=== PATIENT | male | born 1955 | race African-American/Black ===

== ENCOUNTER 2018-02-20 18:31 | Inpatient (IN) | payer MEDICARE ==
[~2018-02-20] VITALS: Ht 170.2 cm; Wt 65.3 kg
[~2018-02-20 18:31] MED LIST: HEPARIN SODIUM,PORCINE 1,000 UNITS/ML VIAL IVP ONE
[2018-02-20] MEDS ORDERED: AMLO-512 PO (18:52)
[2018-02-20] MEDS ORDERED: PHOSLOC PO (18:52)
[2018-02-20] MEDS ORDERED: CloNIDine HCL 0.2 MG TABLET PO ONE (19:00)
[2018-02-20 19:31] LABS: BASOPHILS % (AUTO) 1.1 % (0.0-2.0); EOSINOPHILS % (AUTO) 4.3 % (1.0-6.0); HEMATOCRIT 26.4 % (41-53); HEMOGLOBIN 8.5 g/dL (13.5-17.5); LYMPHOCYTES # (AUTO) 1.2 K/uL (1.0-4.8); LYMPHOCYTES % (AUTO) 14.2 % (22.0-44.0); MEAN CORPUSCULAR HGB CONC 32.2 G/dL (31.0-37.0); MEAN CORPUSCULAR VOLUME 84 fL (80-100); MONOCYTES # (AUTO) 0.7 K/uL (0.1-1.0); NEUTROPHILS % (AUTO) 72.4 % (40.0-70.0); PLATELET COUNT (AUTO) 287 K/uL (150-450); RED BLOOD CELL COUNT(AUTO) 3.15 MIL/uL (4.50-5.90); RED CELL DISTRIBUTION WIDTH 18.2 % (11.5-14.5)
[2018-02-20 19:46] LABS: PROTHROMBIN TIME 10.9 SEC (9.4-11.6)
[2018-02-20 19:51] LABS: ALANINE AMINOTRANSFERASE 43 U/L (12-78); ALBUMIN 3.1 g/dL (3.4-5.0); ALKALINE PHOSPHATASE 143 U/L (46-116); ANION GAP 15 mmol/L (8-16); ASPARTATE AMINOTRANSFERASE 38 U/L (15-37); BILIRUBIN,TOTAL 0.4 mg/dL (0.1-1.0); CALCIUM, TOTAL 7.8 mg/dL (8.8-10.5); CARBON DIOXIDE 19 mmol/L (22-29); CHLORIDE 105 mmol/L (98-107); CREATINE KINASE, TOTAL ONLY 103 U/L (39-308); CREATININE 7.12 mg/dL (0.60-1.30); GLOMERULAR FILTR. RATE CALC 9 mL/min (>60); GLUCOSE,RANDOM 85 mg/dL (70-110); SODIUM SERUM 139 mmol/L (136-145); TOTAL PROTEIN, SERUM 8.1 g/dL (6.4-8.2); UREA NITROGEN, BLOOD 83 mg/dL (7-18)
[2018-02-20 19:58] LABS: POTASSIUM 7.1 mmol/L (3.5-5.1)
[2018-02-20] MEDS ORDERED: ALBUTEROL SULFATE 5 MG/ML 20 ML NEB SOLN [BULK] NEB ONE (20:00)
[2018-02-20] MEDS ORDERED: SODIUM POLYSTYRENE SULFONATE 15 GM/60 ML SUSPENSION BOTTLE PO ONE (20:00)
[2018-02-20] MEDS ORDERED: FUROSEMIDE 40 MG/4 ML VIAL IVP ONE (20:00)
[2018-02-20 20:26] LABS: B-TYPE NATRIURETIC PEPTIDE 1010 pg/mL (0-100); CREATINE KINASE MB 3.1 ng/mL (0-5)
[2018-02-20] MEDS ORDERED: CALCIUM GLUCONATE 100 MG/ML 10 ML IVP ONE (20:45)
[2018-02-20] MEDS ORDERED: 0.9% SODIUM CHLORIDE 10 ML SYRINGE IVP PRN (20:45)
[2018-02-20] MEDS ORDERED: ONDANSETRON HCL 4 MG/2 ML VIAL IVP PRN (20:45)
[2018-02-20] MEDS ORDERED: ACETAMINOPHEN 325 MG TABLET PO PRN ×2 (20:45→21:00)
[2018-02-20] MEDS: DOCUSATE SODIUM 100 MG CAPSULE PO SCH (21:00)
[2018-02-20] MEDS: HEPARIN SODIUM,PORCINE 5,000 UNITS/ML VIAL SQ SCH (21:00)
[2018-02-20] MEDS ORDERED: OxyCODONE HCL/ACETAMINOPHEN 5-325 MG TABLET PO PRN (21:00)
[2018-02-20] MEDS ORDERED: CloNIDine HCL 0.1 MG TABLET PO PRN (21:00)
[2018-02-20] MEDS ORDERED: BISACODYL 10 MG RECTAL RECTAL SUPPOSITORY PR PRN (21:00)
[2018-02-20] MEDS ORDERED: ALBUTEROL SULFATE 2.5 MG/0.5 ML NEB SOLUTION NEB PRN (21:00)
[2018-02-20 21:54] VITALS: BP 180/101
[2018-02-20] MEDS ORDERED: HEPARIN SODIUM,PORCINE 1,000 UNITS/ML VIAL IVP ONE ×2 (22:15)
[2018-02-20] MEDS ORDERED: MANNITOL 25%-12.5 GM/50 ML VIAL IVP PRN (22:15)
[2018-02-20] MEDS ORDERED: CeFAZolin 1 GM/DEXTROSE 50 ML IV ONE (22:30)
[2018-02-21 03:46] VITALS: BP 150/77
[2018-02-21 07:11] VITALS: BP 153/82
[2018-02-21] MEDS: HEPARIN SODIUM,PORCINE 5,000 UNITS/ML VIAL SQ SCH ×2 (08:55→21:00)
[2018-02-21] MEDS: DOCUSATE SODIUM 100 MG CAPSULE PO SCH ×2 (08:55→21:00)
[2018-02-21] MEDS: ATORVASTATIN CALCIUM 10 MG TABLET PO SCH (08:59)
[2018-02-21] MEDS: PANTOPRAZOLE SODIUM 40 MG DR TABLET PO SCH (08:59)
[2018-02-21] MEDS: AmLODIPine BESYLATE 10 MG TABLET PO SCH (08:59)
[2018-02-21] MEDS: ASPIRIN 81 MG CHEWABLE TABLET PO SCH (08:59)
[2018-02-21] MEDS ORDERED: EPOETIN ALFA 10,000 UNITS/ML VIAL SQ SCH (11:00)
[2018-02-21 11:03] VITALS: BP 152/76
[2018-02-21] MEDS ORDERED: SODIUM CHLORIDE 0.9% 1,000 ML IV ONE (11:54)
[2018-02-21] MEDS ORDERED: HEPARIN SODIUM,PORCINE 1,000 UNITS/ML VIAL IVP ONE (12:00)
[2018-02-21 13:03] LABS: BASOPHILS % (AUTO) 1.3 % (0.0-2.0); EOSINOPHILS % (AUTO) 5.8 % (1.0-6.0); HEMATOCRIT 26.2 % (41-53); HEMOGLOBIN 8.5 g/dL (13.5-17.5); LYMPHOCYTES # (AUTO) 0.8 K/uL (1.0-4.8); MEAN CORPUSCULAR HEMOGLOBIN 27.5 pg (26.0-34.0); MEAN CORPUSCULAR HGB CONC 32.4 G/dL (31.0-37.0); MEAN CORPUSCULAR VOLUME 85 fL (80-100); MONOCYTES # (AUTO) 0.7 K/uL (0.1-1.0); MONOCYTES % (AUTO) 11.7 % (2.0-9.0); NEUTROPHILS # (AUTO) 4.2 K/uL (1.8-7.7); NEUTROPHILS % (AUTO) 68.2 % (40.0-70.0); PLATELET COUNT (AUTO) 279 K/uL (150-450); RED BLOOD CELL COUNT(AUTO) 3.09 MIL/uL (4.50-5.90); RED CELL DISTRIBUTION WIDTH 17.9 % (11.5-14.5)
[2018-02-21 13:08] LABS: CALCIUM, TOTAL 8.3 mg/dL (8.8-10.5); CREATININE 4.55 mg/dL (0.60-1.30); POTASSIUM 4.3 mmol/L (3.5-5.1)
[2018-02-21 13:14] LABS: ALBUMIN 2.9 g/dL (3.4-5.0); BILIRUBIN,TOTAL 0.3 mg/dL (0.1-1.0); MAGNESIUM 1.9 mg/dL (1.80-2.40); PHOSPHORUS 6.7 mg/dL (2.5-4.9)
[2018-02-21] MEDS: VITAMIN B COMP/VIT C/FOLIC ACID CAPSULE PO SCH (13:46)
[2018-02-21 15:23] VITALS: BP 140/87
[2018-02-21] MEDS: CALCIUM ACETATE 667 MG CAPSULE PO SCH (17:55)
[2018-02-21 19:55] VITALS: BP 144/85
[2018-02-22 07:35] VITALS: BP 155/92
[2018-02-22] MEDS: ASPIRIN 81 MG CHEWABLE TABLET PO SCH (08:27)
[2018-02-22] MEDS: PANTOPRAZOLE SODIUM 40 MG DR TABLET PO SCH (08:27)
[2018-02-22] MEDS: VITAMIN B COMP/VIT C/FOLIC ACID CAPSULE PO SCH (08:27)
[2018-02-22] MEDS: CALCIUM ACETATE 667 MG CAPSULE PO SCH ×3 (08:27→18:00)
[2018-02-22] MEDS: DOCUSATE SODIUM 100 MG CAPSULE PO SCH ×2 (08:27→20:30)
[2018-02-22] MEDS: ATORVASTATIN CALCIUM 10 MG TABLET PO SCH (08:27)
[2018-02-22] MEDS: AmLODIPine BESYLATE 10 MG TABLET PO SCH (08:27)
[2018-02-22] MEDS: HEPARIN SODIUM,PORCINE 5,000 UNITS/ML VIAL SQ SCH ×2 (08:30→20:30)
[2018-02-22] MEDS ORDERED: HEPARIN SODIUM,PORCINE 1,000 UNITS/ML VIAL IVP ONE ×3 (12:00→18:00)
[2018-02-22 17:50] VITALS: BP 151/94
[2018-02-22] MEDS ORDERED: MANNITOL 25%-12.5 GM/50 ML VIAL IVP PRN (18:00)
[2018-02-22 19:35] VITALS: BP 148/96
[2018-02-22 21:39] LABS: GLUCOMETER DEV NAME(LOC) 5N 1P; GLUCOSE,POINT OF CARE 116 MG/DL (70-110)
== END 2018-02-22 22:23 | DRG 640 ==
LOC: EMS 18:32 → 5S 21:06 → 5N 02-21 19:41
PROVIDERS: ADMIT Internal Medicine; ATTEND Internal Medicine
PROC: 5A1D70Z Performance of Urinary Filtration, Intermittent, Less than 6 Hours Per Day (ICD-10-PCS; 2018-02-20)
PROC: 5A1D70Z Performance of Urinary Filtration, Intermittent, Less than 6 Hours Per Day (ICD-10-PCS; principal; 2018-02-21)
PROC: 5A1D70Z Performance of Urinary Filtration, Intermittent, Less than 6 Hours Per Day (ICD-10-PCS; 2018-02-22)
DX: E87.5 Hyperkalemia (principal); N18.6 End stage renal disease; I12.0 Hypertensive chronic kidney disease with stage 5 chronic kidney disease or end stage renal disease; E44.0 Moderate protein-calorie malnutrition; D63.8 Anemia in other chronic diseases classified elsewhere; E11.22 Type 2 diabetes mellitus with diabetic chronic kidney disease; E11.51 Type 2 diabetes mellitus with diabetic peripheral angiopathy without gangrene; E78.5 Hyperlipidemia, unspecified; F17.200 Nicotine dependence, unspecified, uncomplicated; Z91.15 Patient's noncompliance with renal dialysis; Z99.2 Dependence on renal dialysis; Z79.899 Other long term (current) drug therapy; Z91.19 Patient's noncompliance with other medical treatment and regimen; Z71.6 Tobacco abuse counseling
CPT/HCPCS: 83735; 84100; 87081; 87340; 93005; 99291; J0610; J0690; J0885; J1644; J1940; J7030

== ENCOUNTER 2018-03-12 17:55 | Inpatient (IN) | payer MEDICARE ==
[~2018-03-12] VITALS: Ht 170.2 cm; Wt 63.3 kg
[~2018-03-12 17:55] MED LIST changes: +ACET-784 PO; +AMLO-512 PO; +ASPI81 PO; +ATOR10TA84 PO; +AUD NEB; +CLON-570 PO; +DIPH25 PO; +DSS100 PO; +EPOE10003 SQ; +FOLI1 PO; +HEPA500018 SQ; +MOM30 PO; +PANT40TA25 PO; +PHOSLOC PO
[2018-03-12 19:19] LABS: EOSINOPHILS % (AUTO) 5.6 % (1.0-6.0); HEMOGLOBIN 8.5 g/dL (13.5-17.5); LYMPHOCYTES # (AUTO) 1.3 K/uL (1.0-4.8); LYMPHOCYTES % (AUTO) 15.6 % (22.0-44.0); MEAN CORPUSCULAR HEMOGLOBIN 26.5 pg (26.0-34.0); MEAN CORPUSCULAR HGB CONC 32.7 G/dL (31.0-37.0); MEAN CORPUSCULAR VOLUME 81 fL (80-100); MONOCYTES # (AUTO) 0.6 K/uL (0.1-1.0); MONOCYTES % (AUTO) 6.9 % (2.0-9.0); NEUTROPHILS # (AUTO) 5.7 K/uL (1.8-7.7); NEUTROPHILS % (AUTO) 70.9 % (40.0-70.0); PLATELET COUNT (AUTO) 312 K/uL (150-450); RED BLOOD CELL COUNT(AUTO) 3.21 MIL/uL (4.50-5.90); RED CELL DISTRIBUTION WIDTH 18.5 % (11.5-14.5)
[2018-03-12 19:32] LABS: INR 1.1 (0.9-1.1); PROTHROMBIN TIME 11.6 SEC (9.4-11.6)
[2018-03-12 19:55] LABS: ALBUMIN 3.6 g/dL (3.4-5.0); BILIRUBIN,TOTAL 0.3 mg/dL (0.1-1.0); CALCIUM, TOTAL 6.9 mg/dL (8.8-10.5); CREATININE 12.63 mg/dL (0.60-1.30); TOTAL PROTEIN, SERUM 8.9 g/dL (6.4-8.2)
[2018-03-12] MEDS ORDERED: CALCIUM GLUCONATE 100 MG/ML 10 ML IVP ONE (20:00)
[2018-03-12] MEDS ORDERED: ALBUTEROL SULFATE 5 MG/ML 20 ML NEB SOLN [BULK] NEB ONE (20:05)
[2018-03-12] MEDS ORDERED: 0.9% SODIUM CHLORIDE 5 ML NEB SOLUTION NEB ONE (20:26)
[2018-03-12] MEDS ORDERED: 0.9% SODIUM CHLORIDE 10 ML SYRINGE IVP PRN ×2 (21:00→21:30)
[2018-03-12] MEDS ORDERED: ONDANSETRON HCL 4 MG/2 ML VIAL IVP PRN ×3 (21:00→22:30)
[2018-03-12] MEDS ORDERED: ACETAMINOPHEN 325 MG TABLET PO PRN (21:00)
[2018-03-12] MEDS: SODIUM POLYSTYRENE SULFONATE 15 GM/60 ML SUSPENSION BOTTLE PO ONE ×2 (21:28→21:31)
[2018-03-12] MEDS ORDERED: ZOLPIDEM TARTRATE 5 MG TABLET PO PRN ×2 (21:30→22:30)
[2018-03-12 22:17] VITALS: BP 139/80
[2018-03-13 01:25] VITALS: BP 135/79
[2018-03-13 05:10] VITALS: BP 143/81
[2018-03-13 07:46] VITALS: BP 142/77
[2018-03-13] MEDS: CALCIUM ACETATE 667 MG CAPSULE PO SCH ×2 (08:35→13:09)
[2018-03-13] MEDS ORDERED: ASPIRIN 81 MG CHEWABLE TABLET PO SCH (09:00)
[2018-03-13] MEDS ORDERED: DOCUSATE SODIUM 100 MG CAPSULE PO SCH (09:00)
[2018-03-13] MEDS ORDERED: AmLODIPine BESYLATE 10 MG TABLET PO SCH (09:00)
[2018-03-13] MEDS ORDERED: PANTOPRAZOLE SODIUM 40 MG/VIAL IVP SCH ×2 (09:00)
[2018-03-13] MEDS ORDERED: FOLIC ACID 1 MG TABLET PO SCH (09:00)
[2018-03-13] MEDS ORDERED: EPOETIN ALFA 10,000 UNITS/ML 2 ML VIAL SQ ONE (09:30)
[2018-03-13] MEDS ORDERED: ATORVASTATIN CALCIUM 10 MG TABLET PO SCH (21:00)
[2018-03-14] MEDS ORDERED: EPOETIN ALFA 10,000 UNITS/ML 2 ML VIAL SQ SCH (09:00)
[2018-03-16 09:59] LABS: GLUCOSE,POINT OF CARE 79 MG/DL (70-110)
== END 2018-03-13 14:40 | disposition left against medical advice (07) | DRG 640 ==
LOC: EMS 17:57 → 5S 21:00
PROVIDERS: ADMIT Internal Medicine; ATTEND Internal Medicine
PROC: 5A1D70Z Performance of Urinary Filtration, Intermittent, Less than 6 Hours Per Day (ICD-10-PCS; principal; 2018-03-12)
PROC: 5A1D70Z Performance of Urinary Filtration, Intermittent, Less than 6 Hours Per Day (ICD-10-PCS; 2018-03-13)
DX: E87.5 Hyperkalemia (principal); N18.6 End stage renal disease; I12.0 Hypertensive chronic kidney disease with stage 5 chronic kidney disease or end stage renal disease; J90 Pleural effusion, not elsewhere classified; E11.22 Type 2 diabetes mellitus with diabetic chronic kidney disease; D63.1 Anemia in chronic kidney disease; E11.51 Type 2 diabetes mellitus with diabetic peripheral angiopathy without gangrene; E78.5 Hyperlipidemia, unspecified; F17.210 Nicotine dependence, cigarettes, uncomplicated; Z91.15 Patient's noncompliance with renal dialysis; Z99.2 Dependence on renal dialysis; Z79.82 Long term (current) use of aspirin; Z79.899 Other long term (current) drug therapy; Z89.429 Acquired absence of other toe(s), unspecified side; Z90.79 Acquired absence of other genital organ(s)
CPT/HCPCS: 87081; 93005; 94644; 96374; 99285; C9113; J0610; J0885; J1644